=== PATIENT | female | born 1950 ===

== ENCOUNTER 2022-06-01 08:08 | Day surgery (SDC) | payer OTHER ==
[~2022-06-01] VITALS: Ht 157.5 cm; Wt 65.8 kg
[~2022-06-01 08:08] MED LIST: DILTIAZEM PO
[2022-06-01] MEDS ORDERED: ULTRACET PO (12:31)
[2022-06-01] MEDS ORDERED: COLACE100 MG PO (12:32)
== END 2022-06-01 18:55 | disposition home or self-care (01) ==
LOC: CIR.AMB 08:08
PROVIDERS: ATTEND Surgery
DX: K62.1 Rectal polyp (principal); K62.0 Anal polyp; Z20.822 Contact with and (suspected) exposure to COVID-19; K64.8 Other hemorrhoids; I10 Essential (primary) hypertension; J45.909 Unspecified asthma, uncomplicated; M06.9 Rheumatoid arthritis, unspecified